=== PATIENT | male | born 1985 | race Caucasian/White ===

== ENCOUNTER 2018-12-09 11:15 | Outpatient (REF) | payer MEDICAID, SELFPAY ==
[2018-12-13 13:53] LABS: Benzoylecgonine 18420 ng/mL (Cutoff: 50); Cocaine Negative ng/mL (Cutoff: 50); Cocaine Interpretation Positive.
== END 2018-12-09 11:35 ==
LOC: NCHCN 11:15
PROVIDERS: Visit Provider Nurse Practitioner Family
DX: I10 Essential (primary) hypertension (principal); F31.9 Bipolar disorder, unspecified; F90.9 Attention-deficit hyperactivity disorder, unspecified type; Z86.59 Personal history of other mental and behavioral disorders; Z00.00 Encounter for general adult medical examination without abnormal findings
CPT/HCPCS: 80353

== ENCOUNTER 2019-03-02 03:58 | Emergency (ER) | payer MEDICAID, SELFPAY ==
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
== END 2019-03-02 06:20 ==
DX: S71.112A Laceration without foreign body, left thigh, initial encounter (principal); W26.0XXA Contact with knife, initial encounter; F14.90 Cocaine use, unspecified, uncomplicated; R45.1 Restlessness and agitation
CPT/HCPCS: 73552; 90471; 96372; 96374; 96375; 99284

== ENCOUNTER 2022-07-15 15:28 | Outpatient (REF) | payer MEDICAID, SELFPAY ==
[2022-07-15 19:38] LABS: HCT 45.2 % (40.0-50.0); HGB 15.3 g/dL (13.5-17.5); MCH 29.4 pg (27.0-33.0); MCHC 33.8 % (32.0-36.0); MCV 87 fL (80-95); MPV 10.3 fL (8.0-11.0); Platelet Count 181 10^3/uL (130-400); RDW 12.3 % (11.8-14.1); RDW-SD 39.4 fL; WBC 8.29 10^3/uL (4.4-10.8)
[2022-07-15 19:53] LABS: ALT 28 U/L (16-63); AST 38 U/L (15-37); Albumin 4.6 g/dL (3.4-5.0); Alkaline Phosphatase 85 U/L (46-116); Anion Gap 10.6 mmol/L (3-11); BUN 19 mg/dL (7-18); Bilirubin, Total 0.7 mg/dL (0.2-1.0); CO2 27.4 mmol/L (21.0-32.0); CREATININE 1.2 mg/dL (0.70-1.30); Calcium 9.6 mg/dL (8.5-10.1); Calculated LDL 98 mg/dL (<100); Chloride 100 mmol/L (98-107); Cholesterol 174 mg/dL (<200); Estimated GFR 79.88 (mL/min/1.73m2); Glucose 130 mg/dL (74-106); HDL Cholesterol 53 mg/dL (40-60); Potassium 3.7 mmol/L (3.5-5.1); Sodium 138 mmol/L (136-145); Total Protein 7.5 g/dL (6.4-8.2); Triglyceride 115 mg/dL (<150)
[2022-07-15 19:57] LABS: Hemoglobin A1C 5.2 % (<5.7)
[2022-07-17 08:40] LABS: Hepatitis B Surface Ag Negative (Negative)
[2022-07-17 09:26] LABS: HIV-1/2 Ag & Ab Screen Negative (Negative)
[2022-07-17 11:30] LABS: HCV RNA Qualitative Undetected (Undetected)
== END 2022-07-15 15:29 | disposition home or self-care (01) ==
LOC: NCHCN 15:28
PROVIDERS: Visit Provider Family Medicine
DX: Z11.59 Encounter for screening for other viral diseases (principal); Z11.4 Encounter for screening for human immunodeficiency virus [HIV]; Z87.19 Personal history of other diseases of the digestive system; Z13.1 Encounter for screening for diabetes mellitus; Z13.220 Encounter for screening for lipoid disorders
CPT/HCPCS: 80053; 80061; 85027; 87340; 87389; 87522; 83036

== ENCOUNTER 2023-01-03 08:08 | Emergency (ER) | payer MEDICAID, SELFPAY ==
[2023-01-03] VITALS (32 sets, daily range): BP systolic 108–152; BP diastolic 76–99; PULSE 81–110; RESP 12–100; O2SAT 98–100
--- NOTE | 2023-01-03 | DI.CT_ITS ---
Exam(s) CT THORACIC LUMBAR SPINE REC EXAM: CT THORACIC LUMBAR SPINE REC CLINICAL HISTORY: Per [facility] [place] Dr. Devonte Robledo. TECHNIQUE: Imaging Protocol: Axial, coronal and sagittal images were reconstructed from the chest ab domen and pelvic CT utilizing bone algorithm.. COMPARISON: CT CT CHEST/ABD/PEL W from 01/03/2023 FINDINGS: Thoracic spine: Bones: No fractures are seen. Mild scoliosis. Alignment otherwise unremarkable. Mild degenerative disc changes. Soft tissues: The soft tissues of the chest are unremarkable. No large disk herniations are identifie d. Endotracheal tube. Lumbar spine: No fracture is identified. Minimal degenerative disc changes and facet degenerative ch anges are present. Soft tissues: There is no large disc herniation. No paraspinal hematoma. IMPRESSION: No acute abnormality of the thoracic or lumbar spine. RADIATION DOSE DELIVERED: Total DLP DATA REPOSITORY: All CT scans at this facility are submitted to the National Radiology Data Registry (NRDR) Dose Index Registry (DIR) with the [employer] (ACR). RADIATION OPTIMIZATION: All CT scans at this facility use at least one of these dose optimization te chniques: automated exposure control; mA and/or kV adjustment per patient size (includes targeted exa ms where dose is matched to clinical indication); or iterative reconstruction.
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
--- NOTE | 2023-01-03 08:30 | DI.RAD_ITS ---
Exam(s) XR PORTABLE CHEST AP EXAM: XR PORTABLE CHEST AP CLINICAL HISTORY: intubated. TECHNIQUE: 2D digital imaging was performed. COMPARISON: CR PORTABLE CHEST ONE VIEW from 07/24/2015 FINDINGS: Single AP portable view. Distal tip of the endotracheal tube is in the trachea at the clavicular level. Heart size is upper normal. The mediastinum is not widened. Lungs are clear. No infiltrates nor obvious pleural effusions. No obvious pneumothorax evident on this portable supine view. No obvious fractures. IMPRESSION: ET tube placement as above. No acute pulmonary findings evident on this single portable AP supine vi ew. DATA REPOSITORY: RADIATION DOSE DELIVERED:
[2023-01-03] MEDS: Etomidate 20 MG/10 ML VIAL 30 MG IVP (08:31)
[2023-01-03] MEDS: Rocuronium 50 MG/5 ML SYR 100 MG IVP (08:31)
[2023-01-03] MEDS: fentaNYL 100 MCG/2 ML VIAL ×2 (08:39→09:02)
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
[2023-01-03] MEDS: PROPOFOL 500 MG/50 ML BTL IV (08:46)
[2023-01-03] MEDS: fentaNYL 100 MCG/2 ML VIAL 50 MCG IVP ×2 (08:52→10:52)
--- NOTE | 2023-01-03 09:02 | W.EDPROG ---
Discharge Plan Discharge Details ED Provider: Provider,Temporary Home Meds and New Rx's Prescriptions: No Action methylphenidate HCl [Ritalin] 20 MG tablet 20 mg PO TID
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
[2023-01-03] MEDS: fentaNYL 1,000 MCG in Normal Saline 80 ML 0.1 MCG IV (09:05)
[2023-01-03] MEDS: Normal Saline Flush 10 ML SYR IVP (09:11)
[2023-01-03] MEDS: Normal Saline - Diluent 50 ML VIAL IJ (09:12)
[2023-01-03] MEDS: Omnipaque 350 MG/ML 100 ML BTL IJ (09:12)
[2023-01-03] MEDS: MIDAZOLAM 50 MG in Normal Saline 90 ML IV (09:18)
--- NOTE | 2023-01-03 09:19 | DI.VRAD_ITS ---
PROCEDURE INFORMATION: Exam: XR Chest Exam date and time: 01/03/2023 9:01 AM Age: 37 years old Clinical indication: Other: Intubated, line placement; Patient HX: Trauma TECHNIQUE: Imaging protocol: Radiologic exam of the chest. Views: 1 view. COMPARISON: No relevant prior studies available. FINDINGS: Tubes, catheters and devices: An endotracheal tube projects over the central air column with the tip approximately at the level of the heads of the clavicles. Lungs: The lungs are grossly clear. Pleural spaces: No evidence of pneumothorax. Heart/Mediastinum: Unremarkable. No cardiomegaly. Bones/joints: No definite acute bony abnormalities. IMPRESSION: 1. Endotracheal tube as described. 2. No definite evidence of an acute cardiopulmonary process or thoracic injury. Dictated and Authenticated by: Sudarshan Ramirez MD. Ordering:MIGUEL De Los Santos MD
--- NOTE | 2023-01-03 10:30 | DI.RAD_ITS ---
Exam(s) XR PORTABLE CHEST AP POST LINE EXAM: XR PORTABLE CHEST AP POST LINE CLINICAL HISTORY: og tube. TECHNIQUE: 2D digital imaging was performed. COMPARISON: CR,XR XR PORTABLE CHEST AP from early same date 01/03/2023 FINDINGS: Single AP portable view. Endotracheal tube remains in the trachea at clavicular level. There has been placement of an NG tube . Distal tip appears to be at the level the gastric fundus. Chest leads in place. Heart size is upper normal. The mediastinum is not widened. Lungs are clear. No infiltrates nor obvious pleural effusions. No obvious fractures evident. IMPRESSION: ET tube placement as above. No new pulmonary findings. NG tube appears to be in the stomach. DATA REPOSITORY: RADIATION DOSE DELIVERED:
--- NOTE | 2023-01-03 10:33 | NUR.NOTE ---
Nursing Note:This RN took report at 1010. Pt is intubated and on vent. Fentanyl and Midazolam infusing in left arm. OG 14F established and Zapata 16F established without incident. MD informed of pt's continued biting of tube and need for further sedation methods.
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
[2023-01-03 10:35] LABS: BE (Venous) 4 mmol/L (-2-3); HCO3 (Venous) 30 mmol/L (23-28); O2 Sat (Venous) 75 %; TCO2 (Venous) 27 mmol/L (24-29); pCO2 (Venous) 58 mmHg (41-51); pH (Venous) 7.32 (7.31-7.41); pO2 (Venous) 42 mmHg
[2023-01-03 10:37] LABS: Abs Immature Grans 0.17 10^3/uL (0.0-0.06); Absolute Monocyte Count 1.32 10^3/uL (0.1-0.8); Basophils % 0.2; HCT 39.6 % (40.0-50.0); HGB 13.7 g/dL (13.5-17.5); Immature Grans % 0.7; Lymphocytes % 3.4; MCH 29.8 pg (27.0-33.0); MCHC 34.6 % (32.0-36.0); MCV 86 fL (80-95); MPV 9.1 fL (8.0-11.0); Monocytes % 5.4; Neutrophils % 90.3; Platelet Count 251 10^3/uL (130-400); RDW 12.7 % (11.8-14.1); RDW-SD 39.5 fL; WBC 24.45 10^3/uL (4.4-10.8)
--- NOTE | 2023-01-03 10:37 | DI.VRAD_ITS ---
PROCEDURE INFORMATION: Exam: CT Chest With Contrast; Diagnostic Exam date and time: 01/03/2023 9:43 AM Age: 37 years old Clinical indication: Other: Trauma, jaw FX, altered left chest wall tender TECHNIQUE: Imaging protocol: Diagnostic computed tomography of the chest with contrast. Radiation optimization: All CT scans at this facility use at least one of these dose optimization techniques: automated exposure control; mA and/or kV adjustment per patient size (includes targeted exams where dose is matched to clinical indication); or iterative reconstruction. Contrast material: OMNIPAQUE 350; Contrast volume: 100 ml; Contrast route: INTRAVENOUS (IV); COMPARISON: CR XR PORTABLE CHEST AP 01/03/2023 9:01 AM FINDINGS: Tubes, catheters and devices: Endotracheal tube terminates 3 cm above the brittani. Lungs: No consolidation. No masses. Pleural spaces: Unremarkable. No pneumothorax. No pleural effusion. Heart: No cardiomegaly. No pericardial effusion. Mediastinal space: Frothy material within the esophagus. No mediastinal hematoma. Scattered foci of gas noted throughout and imaged neck and at the superior mediastinum. Lymph nodes: No enlarged lymph nodes. Vasculature: No aortic aneurysm. Bones/joints: Unremarkable. No acute fracture. Soft tissues: Unremarkable. IMPRESSION: 1. No acute intrathoracic finding. 2. Scattered foci of gas at the throughout the imaged portion of the neck, likely dissected from the more superior soft tissue injury. PROCEDURE INFORMATION: Exam: CT Abdomen And Pelvis With Contrast Exam date and time: 01/03/2023 9:43 AM Age: 37 years old Clinical indication: Other: Trauma, jaw FX, altered left chest wall tender TECHNIQUE: Imaging protocol: Computed tomography of the abdomen and pelvis with contrast. Radiation optimization: All CT scans at this facility use at least one of these dose optimization techniques: automated exposure control; mA and/or kV adjustment per patient size (includes targeted exams where dose is matched to clinical indication); or iterative reconstruction. Contrast material: OMNIPAQUE 350; Contrast volume: 100 ml; Contrast route: INTRAVENOUS (IV); COMPARISON: CR XR PORTABLE CHEST AP 01/03/2023 9:01 AM FINDINGS: Limitations: Beam hardening/streak artifact from arms down positioning. Liver: Normal. No mass. Gallbladder and bile ducts: Normal. No calcified stones. No ductal dilation. Pancreas: Normal. No ductal dilation. Spleen: Normal. No splenomegaly. Adrenal glands: Normal. No mass. Kidneys and ureters: Normal. No hydronephrosis. Stomach and bowel: No obstruction. No mucosal thickening. Appendix: No evidence of appendicitis. Intraperitoneal space: No free air. No significant fluid collection. Vasculature: No abdominal aortic aneurysm. Lymph nodes: No enlarged lymph nodes. Urinary bladder: Unremarkable as visualized. Reproductive: Unremarkable as visualized. Bones/joints: No acute fracture. Soft tissues: Unremarkable. IMPRESSION: No acute findings. Dictated and Authenticated by: Malena Loredo MD. Ordering:MIGUEL De Los Santos MD
[2023-01-03 10:42] LABS: Absolute Basophil Count 0.05 10^3/uL (0.0-0.2); Absolute Lymphocyte Count 0.83 10^3/uL (1.2-3.4); Absolute Neutrophil Count 22.08 10^3/uL (1.2-6.7)
[2023-01-03 10:47] LABS: Bilirubin Small (Negative); Blood Moderate (Negative); Clarity Clear (Clear); Glucose Negative (Negative); Ketones Negative (Negative); Leukocyte Esterase Negative (Negative); Nitrite Negative (Negative); Specific Gravity >= 1.030 (1.005-1.025); Urobilinogen 0.2 mg/dL (Up to 0.2); pH 5.5 (5-8)
[2023-01-03 10:50] LABS: PTT Activated 23.7 sec (21.5-31.9); Prothrombin Time 10.3 sec (9.3-11.0)
[2023-01-03 10:54] LABS: Bacteria Negative HPF (Negative); C & S Indicated? No; Casts 3-5 Coarse Granular LPF (Negative); Crystals Few Amorphous HPF (Negative); Epithelial Cells Negative HPF (Negative); Mucus Moderate (Negative); Other Cells Few Transitional (Negative); RBC 20-50 HPF (0-2)
[2023-01-03] MEDS: cefTRIAXone 2 GM/50 ML BAG IVPB (10:55)
[2023-01-03 11:02] LABS: *AMPHETAMINES SCREEN URINE Positive (Negative); *BARBITURATES SCREEN URINE Negative (Negative); *BENZODIAZEPINES SCREEN URINE Negative (Negative); Cannabinoids THC Negative (Negative); Cocaine Screen,Urine Positive (Negative); METHADONE URINE SCREEN Negative (Negative); OPIATES URINE SCREEN Negative (Negative)
[2023-01-03 11:02] LABS: ALT 285 U/L (16-63); AST 291 U/L (15-37); Albumin 3.7 g/dL (3.4-5.0); Alkaline Phosphatase 103 U/L (46-116); Amylase 88 U/L (25-115); Bilirubin, Direct 0.3 mg/dL (0.0-0.2); Bilirubin, Total 1.9 mg/dL (0.2-1.0); Lipase 48 U/L (16-77); Total Protein 7.7 g/dL (6.4-8.2)
[2023-01-03 11:03] LABS: ALT 285 U/L (16-63); AST 289 U/L (15-37); Albumin 3.8 g/dL (3.4-5.0); Alkaline Phosphatase 99 U/L (46-116); Anion Gap 7.4 mmol/L (3-11); BUN 23 mg/dL (7-18); Bilirubin, Total 1.9 mg/dL (0.2-1.0); CO2 29.6 mmol/L (21.0-32.0); CREATININE 1.4 mg/dL (0.70-1.30); Calcium 9.5 mg/dL (8.5-10.1); Chloride 100 mmol/L (98-107); Estimated GFR 66.39 (mL/min/1.73m2); Glucose 146 mg/dL (74-106); Magnesium 2.2 mg/dL (1.8-2.4); Potassium 4.6 mmol/L (3.5-5.1); Sodium 137 mmol/L (136-145); Total Protein 7.7 g/dL (6.4-8.2); Troponin I < 50 ng/L (<or=60)
[2023-01-03 11:03] LABS: Tricyclic Antidepressants Negative (Negative)
[2023-01-03 11:04] LABS: ETHANOL BLOOD < 3.0 mg/dL (<10)
[2023-01-03 11:09] LABS: Diff Comment Diff Reviewed; RBC Morphology Normal
--- NOTE | 2023-01-03 11:27 | DI.VRAD_ITS ---
PROCEDURE INFORMATION: Exam: XR Chest Exam date and time: 01/03/2023 11:05 AM Age: 37 years old Clinical indication: Other: Post og tube placement TECHNIQUE: Imaging protocol: Radiologic exam of the chest. Views: 1 view. COMPARISON: CT CHEST/ABD/PEL W 01/03/2023 9:43 AM FINDINGS: Tubes, catheters and devices: Orogastric tube tip in the stomach. ET tube at the level of the clavicles. Lungs: Unremarkable. No consolidation. Pleural spaces: Unremarkable. No pleural effusion. No pneumothorax. Heart/Mediastinum: Unremarkable. No cardiomegaly. Bones/joints: Unremarkable. IMPRESSION: 1. Orogastric tube tip in the stomach. 2. Stable position of ET tube. Dictated and Authenticated by: Claudia Kelly MD. Ordering:MIGUEL De Los Santos MD
[2023-01-03] MEDS: Ketamine 50 MG/5 ML SYRINGE 30 MG IVP (11:50)
--- NOTE | 2023-01-03 11:57 | NUR.NOTE ---
Nursing Note: MD to change ketamine order of 30mg given at 1150. New fentanyl and medazolam bags given at departure.
--- NOTE | 2023-01-03 12:25 | NUR.NOTE ---
Nursing Note: Report called to [facility] ED to Melita Nunez. Transport team departed at [address] [facility].
== END 2023-01-03 12:07 | disposition short-term general hospital (02) ==
PROVIDERS: Emergency Provider Student in an Organized Health Care Education/Training Program
DX: J96.90 Respiratory failure, unspecified, unspecified whether with hypoxia or hypercapnia (principal); R41.82 Altered mental status, unspecified; S02.609B Fracture of mandible, unspecified, initial encounter for open fracture; W17.89XA Other fall from one level to another, initial encounter
CPT/HCPCS: 31500; 51702; 71045; 74177; 80053; 80076; 80307; 82805; 83690; 86850; 86900; 86901; 96365; 96366; 96375; 99291; 70450; 70486; 71260; 72125; 80320; 81003; 81015; 82150; 83735; 84484; 85025; 85610; 85730; J3010; J3490

== ENCOUNTER 2023-01-17 07:54 | Emergency (ER) | payer MEDICAID, SELFPAY ==
[2023-01-17] VITALS (22 sets, daily range): BP systolic 118–139; BP diastolic 73–112; PULSE 94–111; RESP 13–24; TEMP 36.4–37.1; O2SAT 94–99
--- NOTE | 2023-01-17 08:07 | W.ED.GENAD ---
Discharge Plan Disposition Patient Disposition: Home Discharge Details Clinical Impression: Hypercalcemia, Thrombocytosis, Acute thrombosis of left internal jugular vein, Sinus tachycardia, Acute lactic acidosis Primary Care Provider: None,None ED Provider: Kristopher Daley Home Meds and New Rx's Prescriptions: New bupropion HCl 150 mg tablet extended release 24 hr 150 mg PO QAM Qty: 30 0RF buprenorphine-naloxone [Suboxone] 8-2 mg film 1 film buccal DAILY Qty: 15 0RF up4 Probiotics Adult 15 billion cell capsule 5 cap PO DAILY Qty: 10 0RF No Action methylphenidate HCl [Ritalin] 20 MG tablet 20 mg PO TID Discharge Instructions Additional Instructions: Please read all of the information that accompanies these instructions. You were seen in the emergency department for your generalized weakness. You are advised to remain in the hospital but you declined and left AGAINST MEDICAL ADVICE. Please go to the ENT team as previously scheduled tomorrow. Please return to the emergency department if worsening pain in her neck difficulty breathing or any fevers. Please continue taking your outpatient antibiotics as previously scheduled. Discharge Data Discharge Date/Time-TO BE ENTERED AT DEPARTURE: 01/17/23 14:00 Medical Decision Making This is a well-appearing 37-year-old tachycardic but afebrile male 3 days status post discharge from [facility] with 2 cannulated tracheostomy and G-tube now feeling generally unwell with signs of dehydration. Based on his tachycardia and recent surgical intervention we will plan on obtaining lactate 2 sets of blood cultures and treating empirically with ceftriaxone and vancomycin. Patient reports that he has been adherent with his antibiotics and his antifungal medications. He reports that he has been tolerating his tube feeds. His G-tube site and his stoma site do not appear to be infected. The incisions on his neck do not appear to be infected so my suspicion is low for retained foreign bodies. Furthermore he denies any difficulty swallowing or breathing. Will complete CT soft tissue neck to ensure patient does not have any significant fluid collections postoperatively given that he has had difficulty swallowing. No pain out of proportion to suggest necrotizing soft tissue infection. No dysuria nor frequency to suggest urinary tract infection. Given no shortness of breath and no chest pain my suspicion for PE is low. Patient has not been receiving his bupropion or Suboxone and so it is certainly also a possibility that he could be having early withdrawal from his Suboxone which he had been receiving while an inpatient at [facility]. Patient's rhythm appears sinus on the monitor with a rate of 106. Given no chest pain will defer ECG at this point in time. Patient does have outpatient ENT follow-up tomorrow at 3:45 PM. Will obtain CK level to ensure patient does not develop rhabdomyolysis given decreased activity. We will also obtain magnesium level to ensure patient is not markedly hypomagnesemic. We will redose bupropion and Suboxone. 8:42 PM Lactate returned at 2.5. CBC significant for leukocytosis and thrombocytosis but no anemia. Compared to prior leukocytosis has improved but thrombocytosis is new. 9:29 AM Very mild hyponatremia. No anion gap. Mildly elevated BUN. No GALINA. Mildly elevated alkaline phosphatase. Mild hypercalcemia. Tachycardia downtrending currently 103 bpm. Will provide a second liter of IV fluids. Normal magnesium. Normal CK. 11 AM Preliminary V rad interpretation: 1. Thrombus in the left internal jugular vein in the superior left neck. No evidence of intracranial extension. 2. Rim-enhancing superficial fluid collections in the lateral right and left neck, suspicious for abscesses; see details above. 3. A 4.6 cm x 1.1 cm x 2.9 cm rim-enhancing fluid collection in the retropharyngeal space at C1-C2 is also suspicious for abscess. This contributes to moderate narrowing of the nasopharyngeal and upper oropharyngeal airway. 4. Suspected retained gas-containing foreign body in the right event organizer space which measures 2.4 cm in length Given reported thrombus in left IJ will initiate heparin drip. We will touch base with ENT at [facility] concerning transfer. We will also touch base with ENT about whether or not to initiate ampicillin-sulbactam. 11:50 AM I spoke with Dr. Walker from ENT at [facility] who reported that the patient's left IJ thrombus was old. She wants to review with her attending the other collections as she feels that these are similar to areas in which patient had drains in the past. 12:30 PM Repeat lactate within normal limits. I canceled patient's heparinization given reportedly old left IJ thrombus. 1:07 PM Repeat basic metabolic panel with mildly improved creatinine. Down trended BUN. Resolved hypercalcemia. 1:50 PM Patient requested his methylphenidate for anxiety which I ordered. Health community health nurse supervisor Paul ledbetter to inquire as to timing of ENT reconsultation. 1:57 PM I spoke again to Dr. Walker who reviewed scans w/rads at [facility]. She felt changes were consistent with expected changes. She advised local hospitalization versus [facility] transfer. She advised flucoinzole by PEG tube, cefepime & vanco. 2:15 PM I met with the patient and explained recommendation from ENT for the patient to be hospitalized. Patient was adamant about wanting to go home. Patient wrote that he felt 100% better. He felt that he was not feeling well secondary to his buprenorphine missed doses. I advised that there is risks of being discharged including worsening infection fevers sepsis and . He understood these risks and will follow-up tomorrow with his ENT team. He will continue his outpatient sulfamethoxazole and his fluconazole. Patient also requested a prescription for probiotics which I ordered. 1. I explained the current situation and condition to the patient. 2. I explained the recommended treatment for this condition -hospitalization for antibiotics 3. I explained the risk of not having the recommended treatment -sepsis infection and 4. The patient understands this information has no questions, and repeated back this information. 5. The patient states that they need to leave and will follow-up with ENT tomorrow and return if needed 6. Mental status is lucid and the patient has decision-making capacity. 7. Patient is withdrawing his consent for care Chronic conditions affecting the care of the patient: Decannulate tracheostomy stoma History obtained from an outside historian: ENT at [facility] External record review: [facility] EMR Diagnostic interpretations performed by me: [Per my independent interpretation chest x-ray shows:] No acute cardiopulmonary process preliminary ED interpretation Medications: Ceftriaxone and vancomycin Social determinants of health affecting disposition: N/A Management discussed with: ENT at [facility] Treatment/interventions considered: Hospitalization but deferred as patient left AGAINST MEDICAL ADVICE Response to therapies provided: Improved following IV fluids and buprenorphine HPI General Date/Time Provider Initiated Documentation: 01/17/23 08:07. HPI Narrative: This is a 37-year-old male on outpatient bupropion and Suboxone who is approximately 15 days status post significant trauma to head and neck requiring intubation tertiary care transfer tracheostomy placement and extensive ENT surgery at [facility] and PEG tube placement now feeling weak. Patient has been tolerating his tube feeds. He was discharged from [facility] 3 days ago. He denies chest pain shortness of breath. He reports that he has not been taking as he was not prescribed these his bupropion and his Suboxone after discharge from [facility]. He has not been nauseous or vomiting nor had any fevers nor chills. He has had difficulty swallowing. He denies dysuria and frequency. He has not had any calf pain nor abdominal pain. He has not had any drainage from his neck wounds. Related Data Home Medications Medication Instructions Recorded Confirmed methylphenidate HCl 20 mg tablet 20 mg PO TID 07/26/15 07/26/15 (Ritalin) Lactobacillus 5 cap PO DAILY #10 caps 01/17/23 acidophil,plantar-Bifido no.7 15 billion cell capsule (up4 Probiotics Adult) buprenorphine 8 mg-naloxone 2 mg 1 film buccal DAILY #15 ea 01/17/23 sublingual film (Suboxone) bupropion HCl 150 mg 24 hr tablet, 150 mg PO QAM #30 tabs 01/17/23 extended release Previous Rx's Medication Instructions Recorded Lactobacillus 5 cap PO DAILY #10 caps 01/17/23 acidophil,plantar-Bifido no.7 15 billion cell capsule (up4 Probiotics Adult) buprenorphine 8 mg-naloxone 2 mg 1 film buccal DAILY #15 ea 01/17/23 sublingual film (Suboxone) bupropion HCl 150 mg 24 hr tablet, 150 mg PO QAM #30 tabs 01/17/23 extended release Allergies Allergy/AdvReac Type Severity Reaction Status Date / Time tomato Allergy Unknown Unverified 01/17/23 08:05 General Stated Complaint: [employer]Medical APRIL: 2 PFSH All Active Problems (Updated 01/17/23 @ 12:32 by Kristopher Daley MD) Drug overdose, multiple drugs (Acute) Respiratory failure (Acute) Suicidal ideation (Acute) Trauma (Acute) Acute alteration in mental status (Acute) Hypercalcemia (Acute) Thrombocytosis (Acute) Acute thrombosis of left internal jugular vein (Acute) Sinus tachycardia (Acute) Acute lactic acidosis (Acute) Social History Smoking/Tobacco Use Status: Current every day Tobacco Type: cigarettes Smoking risk assessment performed?: Yes Alcohol Intake: current Alcohol Intake frequency: holidays/special occasions only Drug use: Never Substance use type: marijuana and crack/cocaine Details: has not used anything since his trauma 2 weeks ago 01/17/23 Housing: other Do you feel safe at home: Yes (unable to assess) Do you feel safe in your relationship?: Yes Additional Social history: lives in [place] with girlfriend Exam Narrative Exam Narrative: General: Uncomfortable-appearing in no acute distress speaking in complete sentences. Head: Normocephalic, atraumatic. Eye: Pupils equal, round reactive to light. Extraocular eye movements intact. No conjunctival injection. No scleral icterus. Ear, nose, mouth, throat: Grossly normal inspection. Normal voice, handling secretions normally. Neck: Trachea midline. left & right neck with surgical incisions with no signs of superinfection. Decannulate uncovered tracheostomy stoma. Cardiovascular: Well-perfused distal extremities. Rapid regular rate Respiratory: Nonlabored respiration. Clear lungs. Gastrointestinal: Nondistended abdomen. PEG-tube in place no signs of superinfection Musculoskeletal: No edema. Moving all 4 extremities spontaneously. Skin: Normal for age and race, grossly normal temperature and turgor. No acute rash. Neurologic: Alert and appropriate, no apparent acute deficits. Psychiatric: Mood and manner are appropriate. Grooming and personal hygiene are appropriate. Course Vital Signs Vital signs: Vital Signs Temperature 36.4 C L 01/17/23 08:00 Pulse 111 H 01/17/23 08:00 Respiratory Rate 20 01/17/23 08:00 Blood Pressure 132/101 H 01/17/23 08:00 Pulse Oximetry 96 01/17/23 08:00 Temperature 36.4 C L 01/17/23 08:00 Temperature Source Oral 01/17/23 08:00 Pulse 111 H 01/17/23 08:00 Respiratory Rate 20 01/17/23 08:00 Blood Pressure 132/101 H 01/17/23 08:00 Blood Pressure Position Supine 01/17/23 08:00 Pulse Oximetry 96 01/17/23 08:00 Oxygen Delivery Method Room Air 01/17/23 08:00 Oxygen Flow Rate 0 01/17/23 08:00 Pain Level 0 01/17/23 08:00 Critical Care Time Critical Care Time Critical Care Time: Yes Total Critical Care Time: 30 Attestation: Tachycardia lactic acidosis
--- NOTE | 2023-01-17 08:15 | DI.RAD_ITS ---
Exam(s) XR PORTABLE CHEST AP EXAM: XR PORTABLE CHEST AP CLINICAL HISTORY: Feeling unwell. TECHNIQUE: 2D digital imaging was performed. COMPARISON: CR,XR XR PORTABLE CHEST AP POST LINE from 01/03/2023 FINDINGS: Single AP portable view. Heart size is upper normal. The mediastinum is not widened. Lungs are clear. No infiltrates nor obvious pleural effusions. IMPRESSION: No acute pulmonary findings on this single AP portable view of the chest. DATA REPOSITORY: RADIATION DOSE DELIVERED:
--- NOTE | 2023-01-17 08:30 | DI.CT_ITS ---
Exam(s) CT NECK W EXAM: CT NECK W INDICATION: Feeling unwell? foreign body wood Postop. COMPARISON: CT CT HEAD CERV SPINE FACIAL WO from 01/03/2023 TECHNIQUE: FINDINGS: VISUALIZED PARANASAL SINUSES: Unremarkable. NASOPHARYNX: Unremarkable RETROPHARYNGEAL/PREVERTEBRAL SPACE: There is an abnormal peripherally enhancing retropharyngeal fluid collection at C1-2 level along the course of the previously present traversing puncture wound seen o n the recent CT scan of 01/03/2023. There is also an associated perpendicular abscess extending more anteriorly in the retropharyngeal tissues. Maximum AP dimension of the abscess is 1.4 cm at this [place]. Abscess is approximately 6 cm wide and approximately 3 cm cephalocaudal measurement. This absc ess causes moderate narrowing of the upper pennie pharyngeal and nasopharyngeal cavities. OTHER COLLECTIONS: There is a peripherally enhancing fluid collection left side of the neck surroundi ng a surgical clip. This collection measures approximately 3 cm AP by 1 cm wide by 7 cm cephalocauda l. There is also a thinner similar appearing abnormal fluid collection in the right side of the neck whi ch extends up towards the parotid gland, measuring approximately 11 cm cephalocaudal length by 0.6 cm wide. Air-gas as in the right manufactured buildings repairer space measuring 2.5 cm length by 0.5 cm. This may be gas within retained nonmetallic foreign body. OROPHARYNX: Uvula and tonsils appear intact. HYPOPHARYNX: Unremarkable. Valleculae and epiglottis and aryepiglottic folds appear normal. VOCAL CORDS: Unremarkable. No masses evident. Subglottic airway appears unremarkable. THYROID GLAND: Unremarkable. Normal size and no significant nodules. SALIVARY GLANDS: Unremarkable. No significant findings in the parotid and submandibular glands. LYMPH NODES: There is no adenopathy evident in the neck and supraclavicular regions. VASCULAR: The visualized common carotid arteries in the neck are patent. Carotid bulbs and proximal internal carotid arteries appear unremarkable. There is no obvious acute occlusion or dissection of the internal carotid arteries in the neck and skull base. There is intraluminal thrombus in the left internal jugular vein at the C1-C2 level without obvious extension into the intracranial compartment . VISUALIZED LUNG APICES: No significant findings. IMPRESSION: 1. There are multilevel separate rim enhancing fluid collections, all suspicious for abscesses. The abscess in the retropharyngeal space measures 3 cm cephalocaudal by 6 cm wide. It is causing mild n arrowing of the upper pennie pharyngeal and nasopharyngeal airways. 2. There also a rim enhancing more superficial abscesses in the lateral aspects of the right and lef t sides the neck as described above. 3. There is intraluminal thrombus in the left internal jugular vein without evidence of obvious intr acranial extension. 4. The visualized carotid arteries in the neck appear intact. 5. Oblique orientated gas as in the right manufactured buildings repairer space measuring 2.5 by 0.5 cm may represent ga s as within a nonmetallic foreign body in the right manufactured buildings repairer space. First read by [facility]. RADIATION DOSE DELIVERED: 553.77mGy.cm Total DLP DATA REPOSITORY: All CT scans at this facility are submitted to the National Radiology Data Registry (NRDR) Dose Index Registry (DIR) with the [employer] ([employer]). RADIATION OPTIMIZATION: All CT scans at this facility use at least one of these dose optimization te chniques: automated exposure control; mA and/or kV adjustment per patient size (includes targeted exa ms where dose is matched to clinical indication); or iterative reconstruction.
[2023-01-17] MEDS: Normal Saline 1,000 ML 1000 ML IV ×2 (08:36→10:50)
[2023-01-17 08:42] LABS: Abs Immature Grans 0.35 10^3/uL (0.0-0.06); Absolute Basophil Count 0.09 10^3/uL (0.0-0.2); Absolute Eosinophil Count 0.09 10^3/uL (0.0-0.7); Absolute Lymphocyte Count 1.83 10^3/uL (1.2-3.4); Absolute Monocyte Count 0.87 10^3/uL (0.1-0.8); Absolute Neutrophil Count 14.22 10^3/uL (1.2-6.7); Basophils % 0.5; Eosinophils % 0.5; HCT 41.8 % (40.0-50.0); HGB 14.2 g/dL (13.5-17.5); Lactate 2.5 mmol/L (0.6-1.4); Lymphocytes % 10.5; MCH 29.2 pg (27.0-33.0); MCV 86 fL (80-95); MPV 8.9 fL (8.0-11.0); Neutrophils % 81.5; Platelet Count 544 10^3/uL (130-400); RBC 4.87 10^6/uL (4.36-5.78); RDW 13.6 % (11.8-14.1); RDW-SD 41.3 fL; WBC 17.45 10^3/uL (4.4-10.8)
[2023-01-17] MEDS: cefTRIAXone 2 GM/50 ML BAG IVPB (08:44)
[2023-01-17 08:57] LABS: ALT 54 U/L (16-63); AST 35 U/L (15-37); Albumin 3.7 g/dL (3.4-5.0); Alkaline Phosphatase 163 U/L (46-116); Anion Gap 10.6 mmol/L (3-11); BUN 30 mg/dL (7-18); Bilirubin, Total 0.6 mg/dL (0.2-1.0); CO2 29.4 mmol/L (21.0-32.0); CREATININE 1.2 mg/dL (0.70-1.30); Calcium 10.5 mg/dL (8.5-10.1); Chloride 91 mmol/L (98-107); Creatine Kinase 87 U/L (39-308); Estimated GFR 79.88 (mL/min/1.73m2); Glucose 148 mg/dL (74-106); Magnesium 2.3 mg/dL (1.8-2.4); Potassium 4.6 mmol/L (3.5-5.1); Sodium 131 mmol/L (136-145); Total Protein 10.1 g/dL (6.4-8.2)
[2023-01-17] MEDS: Normal Saline - Diluent 50 ML VIAL IJ (09:44)
[2023-01-17] MEDS: Normal Saline Flush 10 ML SYR IVP (09:44)
[2023-01-17] MEDS: Omnipaque 350 MG/ML 100 ML BTL IJ (09:45)
--- NOTE | 2023-01-17 09:55 | DI.VRAD_ITS ---
PROCEDURE INFORMATION: Exam: XR Chest Exam date and time: 01/17/2023 9:47 AM Age: 37 years old Clinical indication: Other: Feeling unwell TECHNIQUE: Imaging protocol: Radiologic exam of the chest. Views: 1 view. COMPARISON: CR XR PORTABLE CHEST AP 01/03/2023 11:05 AM FINDINGS: Lungs: The lungs are clear and well aerated bilaterally. There is no consolidation, infiltrate, or pulmonary edema. The pulmonary vasculature is normal in caliber. Pleural spaces: Unremarkable. No pleural effusion or pneumothorax. Heart/Mediastinum: Heart size and cardiomediastinal contours are normal. Bones/joints: No acute osseous abnormality. IMPRESSION: No active disease in the chest. Dictated and Authenticated by: Mae Collins MD. Ordering:ALMAS Summers MD
--- NOTE | 2023-01-17 10:50 | DI.VRAD_ITS ---
Addendum created by Mae Collins MD on 01/17/2023 11:05:17 AM EDT: In the body of the report under the subheading Salivary glands, the statement should read: There is asymmetric enlargement of the right parotid gland which contains a 2.4 cm x 1.2 cm x 1.9 cm fluid collection with thin rim enhancement (measured on sagittal image 71 and series 3, image 70), suspicious for abscess. THIS REPORT CONTAINS FINDINGS THAT MAY BE CRITICAL TO PATIENT CARE. The findings were verbally communicated via telephone conference at 11:05 AM EDT on 01/17/2023 with NGHIA MCNULTY. The findings were acknowledged and understood. Initial report created on 01/17/2023 10:50:05 AM EDT: PROCEDURE INFORMATION: Exam: CT Neck With Contrast Exam date and time: 01/17/2023 9:53 AM Age: 37 years old Clinical indication: Other: Feeling unwell? Foreign body wood postop; Prior surgery; Surgery date: <1 month; Surgery type: Jaw surgery TECHNIQUE: Imaging protocol: Computed tomography of the neck with contrast. Radiation optimization: All CT scans at this facility use at least one of these dose optimization techniques: automated exposure control; mA and/or kV adjustment per patient size (includes targeted exams where dose is matched to clinical indication); or iterative reconstruction. Contrast material: OMNIPAQUE 350; Contrast volume: 100 ml; Contrast route: INTRAVENOUS (IV); COMPARISON: CT HEAD CERV SPINE FACIAL WO 01/03/2023 9:37 AM FINDINGS: Mastoid air cells: Well-aerated. Pharynx: The retropharyngeal fluid collection described below contributes to moderate effacement of the nasopharyngeal and upper oropharyngeal airway. The hypopharynx is patent and normal in caliber. The epiglottis is unremarkable. Larynx: Unremarkable. Prevertebral and retropharyngeal spaces: There is an irregular elongated retropharyngeal fluid collection at the C1-C2 level with thin rim enhancement which contains some globular and linear foci of gas, most suggestive of abscess. This measures approximately 4.1 cm craniocaudal and up to 1.2 cm x 4.8 cm in maximum AP and transverse dimensions, respectively (measured on sagittal image 45 and series 4, image 355). Salivary glands: The parotid and submandibular glands are normal and symmetric in size. Thyroid: Unremarkable. Lymph nodes: No pathologically enlarged lymph nodes. Trachea: The visualized trachea is patent and normal in caliber. There are presumed postsurgical changes from presumed recent tracheostomy in the anterior/inferior cervical trachea where there is a channel of gas extending from the trachea into the pretracheal soft tissues. Lungs: The visualized lung apices are clear. Bones/joints: No fractures or suspicious osseous lesions. Vasculature: There is a filling defect in the left internal jugular vein just inferior to the skull base which measures 2.8 cm in length (see sagittal image 33), consistent with thrombus. The right internal jugular vein and the visualized dural venous sinuses are patent. Soft tissues: Surrounding a surgical clip in the lateral left neck is a fluid collection with a thin enhancing wall which measures 4.6 cm CC x 1.1 cm TRV x 2.9 cm AP (measured on sagittal image 28 and series 4, image 260), suspicious for abscess. There is a thin elongated rim enhancing fluid collection in the lateral right neck with an adjacent surgical clip which is also suspicious for abscess. This collection measures approximately 3.4 cm CC and 0.8 cm x 2.3 cm in the axial plane (measured on sagittal image 62 and series 4, image 272). There is a small focus of gas in the soft tissues just posterior to the right angle of the mandible with multiple adjacent surgical clips. This gas is presumed to be postsurgical. There is a persistent circumscribed linear focus of gas in the right assistant gm of content & delivery space, suspicious for a retained gas-containing foreign body, with a small amount of surrounding fluid. This measures approximately 2.4 cm in length (measured on coronal image 32). IMPRESSION: 1. Thrombus in the left internal jugular vein in the superior left neck. No evidence of intracranial extension. 2. Rim-enhancing superficial fluid collections in the lateral right and left neck, suspicious for abscesses; see details above. 3. A 4.6 cm x 1.1 cm x 2.9 cm rim-enhancing fluid collection in the retropharyngeal space at C1-C2 is also suspicious for abscess. This contributes to moderate narrowing of the nasopharyngeal and upper oropharyngeal airway. 4. Suspected retained gas-containing foreign body in the right assistant gm of content & delivery space which measures 2.4 cm in length. Dictated and Authenticated by: Mae Collins MD. Ordering:ALMAS Summers MD
[2023-01-17] MEDS: VANCOMYCIN/WATER (PEG) 1.25 GM/250 ML BAG IV (10:56)
[2023-01-17] MEDS: Buprenorphine/Naloxone 8 mg/2 mg FILM 1 EACH SL (10:57)
[2023-01-17] MEDS: buPROPion 75 MG TAB PO (11:04)
[2023-01-17 12:24] LABS: Lactate 0.8 mmol/L (0.6-1.4)
[2023-01-17 12:45] LABS: Anion Gap 10.5 mmol/L (3-11); BUN 25 mg/dL (7-18); CO2 25.5 mmol/L (21.0-32.0); Calcium 9.2 mg/dL (8.5-10.1); Chloride 97 mmol/L (98-107); Estimated GFR 99.41 (mL/min/1.73m2); Glucose 158 mg/dL (74-106); Potassium 4.3 mmol/L (3.5-5.1); Sodium 133 mmol/L (136-145)
[2023-01-17] MEDS: Normal Saline 500 ML IV (12:49)
== END 2023-01-17 14:00 | disposition home or self-care (01) ==
PROVIDERS: Emergency Provider Emergency Medicine
DX: R53.1 Weakness (principal); E83.52 Hypercalcemia; D69.6 Thrombocytopenia, unspecified; I82.C12 Acute embolism and thrombosis of left internal jugular vein; R00.0 Tachycardia, unspecified; E87.20 Acidosis, unspecified; Z53.29 Procedure and treatment not carried out because of patient's decision for other reasons; Z93.0 Tracheostomy status
CPT/HCPCS: 36415; 70491; 80048; 80053; 82550; 87040; 71045; 83605; 83735; 85025; J3490

== ENCOUNTER 2023-02-26 15:57 | Emergency (ER) | payer MEDICAID, SELFPAY ==
[2023-02-26] VITALS (66 sets, daily range): BP systolic 111–149; BP diastolic 66–109; PULSE 76–99; RESP 8–28; O2SAT 62–100
--- NOTE | 2023-02-26 16:00 | DI.CT_ITS ---
Exam(s) CT HEAD WO EXAM: CT HEAD WO CLINICAL HISTORY: ams. TECHNIQUE: Imaging Protocol: Axial computed tomography images with coronal and sagittal reformatted images were created and reviewed COMPARISON: CT HEAD WITHOUT CONTRAST from 07/26/[address] HEAD CERV SPINE FACIAL WO from 01/03/[address] NECK W from 01/17/2023 CR XR CHEST 1V IN DI DEPT from 02/26/2023 FINDINGS: There is a nasal airway but its distal tip is in the right-side of the nasopharynx and requires repos itioning. There are no skull fractures. There is no fluid in the visualized paranasal sinuses. There is no evidence of intracranial hemorrhage, mass effect, or shift of midline structures. There are no extra-axial fluid collections. The ventricles are not enlarged or shifted and there is no blo od within the ventricular system nor within the basal cisterns. IMPRESSION: No acute intracranial findings on this noninfused CT scan of the brain. Nasal airway requires repositioning. Called by myself to ER physician. RADIATION DOSE DELIVERED: 831.76mGy.cm Total DLP DATA REPOSITORY: All CT scans at this facility are submitted to the National Radiology Data Registry (NRDR) Dose Index Registry (DIR) with the [employer] ([employer]). RADIATION OPTIMIZATION: All CT scans at this facility use at least one of these dose optimization te chniques: automated exposure control; mA and/or kV adjustment per patient size (includes targeted exa ms where dose is matched to clinical indication); or iterative reconstruction.
--- NOTE | 2023-02-26 16:07 | DI.RAD_ITS ---
Exam(s) XR CHEST 1V IN DI DEPT EXAM: XR CHEST 1V IN DI DEPT CLINICAL HISTORY: ams. TECHNIQUE: 2D digital imaging was performed. COMPARISON: CR,XR XR PORTABLE CHEST AP from 01/17/2023 FINDINGS: Single AP portable view. Heart size is upper normal. The mediastinum is not widened. Lungs are clear. No infiltrates nor obvious pleural effusions. IMPRESSION: No acute pulmonary findings on this single AP portable view of the chest. DATA REPOSITORY: RADIATION DOSE DELIVERED:
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
[2023-02-26 16:19] LABS: BE (Venous) 1 mmol/L (-2-3); HCO3 (Venous) 26 mmol/L (23-28); O2 Sat (Venous) 89 %; TCO2 (Venous) 23 mmol/L (24-29); pCO2 (Venous) 41 mmHg (41-51); pH (Venous) 7.41 (7.31-7.41); pO2 (Venous) 59 mmHg
[2023-02-26 16:23] LABS: Abs Immature Grans 0.04 10^3/uL (0.0-0.06); Absolute Basophil Count 0.01 10^3/uL (0.0-0.2); Absolute Lymphocyte Count 0.94 10^3/uL (1.2-3.4); Absolute Monocyte Count 0.28 10^3/uL (0.1-0.8); Absolute Neutrophil Count 6.19 10^3/uL (1.2-6.7); Basophils % 0.1; HGB 12.5 g/dL (13.5-17.5); Immature Grans % 0.5; Lymphocytes % 12.6; MCH 27.9 pg (27.0-33.0); MCHC 33.8 % (32.0-36.0); MCV 83 fL (80-95); MPV 8.9 fL (8.0-11.0); Monocytes % 3.8; Platelet Count 262 10^3/uL (130-400); RBC 4.48 10^6/uL (4.36-5.78); RDW-SD 36.5 fL; WBC 7.46 10^3/uL (4.4-10.8)
--- NOTE | 2023-02-26 16:23 | NUR.NOTE ---
Nursing Note: patient was given sedation medication by EMS prior to arrival. Patient taken off ems restraints and placed on [id number] with restraints upon arrival to ED.
[2023-02-26] MEDS: Normal Saline 1,000 ML 1000 ML IV (16:44)
[2023-02-26] MEDS: Lactated Ringers 1,000 ML 1000 ML IV ×2 (16:44→18:53)
[2023-02-26 16:46] LABS: ALT 33 U/L (16-63); AST 96 U/L (15-37); Albumin 3.8 g/dL (3.4-5.0); Alkaline Phosphatase 95 U/L (46-116); Anion Gap 10.8 mmol/L (3-11); BUN 34 mg/dL (7-18); Bilirubin, Total 0.9 mg/dL (0.2-1.0); CO2 26.2 mmol/L (21.0-32.0); CREATININE 1.1 mg/dL (0.70-1.30); Calcium 9.3 mg/dL (8.5-10.1); Chloride 97 mmol/L (98-107); Estimated GFR 88.67 (mL/min/1.73m2); Glucose 115 mg/dL (74-106); Lipase 17 U/L (16-77); Magnesium 2.3 mg/dL (1.8-2.4); Potassium 3.8 mmol/L (3.5-5.1); Sodium 134 mmol/L (136-145); TSH (W/Ref FT4) 0.84 uIU/mL (0.36-3.74)
[2023-02-26 17:02] LABS: Creatine Kinase 1695 U/L (39-308); ETHANOL BLOOD < 3.0 mg/dL (<10)
[2023-02-26 17:03] LABS: Acetaminophen < 2 ug/mL (10-30); Salicylate < 2.8 mg/dL (<2.8)
--- NOTE | 2023-02-26 17:23 | NUR.NOTE ---
Nursing Note:nursing staff and security accompanied patient to diagnostic imaging while CT and xray were performed.
[2023-02-26 17:44] LABS: INR 1.1 (0.9-1.1); PTT Activated 28.1 sec (21.5-31.9); Prothrombin Time 10.8 sec (9.3-11.0)
[2023-02-26 17:55] LABS: Bilirubin Negative (Negative); Blood Large (Negative); Clarity Sl Cloudy (Clear); Glucose Negative (Negative); Ketones Negative (Negative); Leukocyte Esterase Negative (Negative); Nitrite Negative (Negative); Specific Gravity >= 1.030 (1.005-1.025); Urobilinogen 0.2 mg/dL (Up to 0.2)
[2023-02-26 18:02] LABS: *AMPHETAMINES SCREEN URINE Negative (Negative); *BARBITURATES SCREEN URINE Negative (Negative); *BENZODIAZEPINES SCREEN URINE Positive (Negative); Cannabinoids THC Positive (Negative); Cocaine Screen,Urine Positive (Negative); METHADONE URINE SCREEN Negative (Negative); OPIATES URINE SCREEN Negative (Negative)
[2023-02-26 18:03] LABS: Tricyclic Antidepressants Negative (Negative)
--- NOTE | 2023-02-26 18:11 | NUR.NOTE ---
Nursing Note:attempted to contact patients dad, the phone was busy. [phone]
[2023-02-26 18:20] LABS: Epithelial Cells Rare HPF (Negative); RBC >50 HPF (0-2); WBC 0-2 HPF (0-5)
[2023-02-26 18:21] LABS: Bacteria Negative HPF (Negative); C & S Indicated? No; Crystals Negative HPF (Negative); Mucus Moderate (Negative)
--- NOTE | 2023-02-26 19:27 | NUR.NOTE ---
Nursing Note: RN called the father and gave him a quick update, father had questions that RN is unable to answer. MD will call the father.
[2023-02-26 22:05] LABS: Creatine Kinase 1155 U/L (39-308)
--- NOTE | 2023-02-26 22:32 | NUR.NOTE ---
Referral to Care Mgt for substance abuse resources and to establish pcp.
== END 2023-02-26 23:21 | disposition home or self-care (01) ==
PROVIDERS: Emergency Provider Emergency Medicine
DX: R41.82 Altered mental status, unspecified (principal); M62.82 Rhabdomyolysis; E86.0 Dehydration; R45.1 Restlessness and agitation
CPT/HCPCS: 36415; 51702; 80053; 80307; 82550; 82805; 82962; 83690; 96360; 96361; 99285; 70450; 71045; 80320; 80329; 81003; 81015; 83735; 84443; 85025; 85610; 85730

== ENCOUNTER 2023-05-06 16:15 | Outpatient (REF) | payer MEDICAID, SELFPAY ==
[2023-05-11 09:20] LABS: Methylphenidate Negative ng/mL (Cutoff: 10); Ritalinic Acid Negative ng/mL (Cutoff: 50)
== END 2023-05-06 16:16 | disposition home or self-care (01) ==
LOC: NCHCN 16:15
PROVIDERS: Visit Provider Family Medicine
DX: F90.9 Attention-deficit hyperactivity disorder, unspecified type (principal); Z51.81 Encounter for therapeutic drug level monitoring; Z79.899 Other long term (current) drug therapy
CPT/HCPCS: 80360

== ENCOUNTER 2023-06-04 17:43 | Outpatient (REF) | payer MEDICAID, SELFPAY ==
[2023-06-10 14:49] LABS: Methylphenidate Negative ng/mL (Cutoff: 10); Ritalinic Acid Negative ng/mL (Cutoff: 50)
== END 2023-06-04 17:44 | disposition home or self-care (01) ==
LOC: NCHCN 17:43
PROVIDERS: Visit Provider Family Medicine
DX: F90.8 Attention-deficit hyperactivity disorder, other type (principal); Z79.899 Other long term (current) drug therapy; Z51.81 Encounter for therapeutic drug level monitoring
CPT/HCPCS: 80360

== ENCOUNTER 2023-07-26 16:16 | Outpatient (REF) | payer MEDICAID, SELFPAY ==
[2023-07-31 05:00] LABS: Methylphenidate 58 ng/mL (Cutoff: 10); Ritalinic Acid 2590 ng/mL (Cutoff: 50)
== END 2023-07-26 16:17 | disposition home or self-care (01) ==
LOC: NCHCN 16:16
PROVIDERS: Visit Provider Family Medicine
DX: F11.20 Opioid dependence, uncomplicated (principal)
CPT/HCPCS: 80360

== ENCOUNTER 2023-08-06 17:21 | Outpatient (REF) | payer MEDICAID, SELFPAY ==
[2023-08-10 08:06] LABS: Methylphenidate 75 ng/mL (Cutoff: 10); Ritalinic Acid 1999 ng/mL (Cutoff: 50)
== END 2023-08-06 17:22 | disposition home or self-care (01) ==
LOC: NCHCN 17:21
PROVIDERS: Visit Provider Family Medicine
DX: F90.8 Attention-deficit hyperactivity disorder, other type (principal); Z79.899 Other long term (current) drug therapy; Z51.81 Encounter for therapeutic drug level monitoring
CPT/HCPCS: 80360

== ENCOUNTER 2023-09-09 14:59 | Outpatient (REF) | payer MEDICAID, SELFPAY ==
[2023-09-14 13:56] LABS: Methylphenidate Negative ng/mL (Cutoff: 10); Ritalinic Acid Negative ng/mL (Cutoff: 50)
== END 2023-09-09 15:00 | disposition home or self-care (01) ==
LOC: NCHCN 14:59
PROVIDERS: PCP Family Medicine; Visit Provider Family Medicine
DX: F90.8 Attention-deficit hyperactivity disorder, other type (principal); Z79.899 Other long term (current) drug therapy
CPT/HCPCS: 80360

== ENCOUNTER 2025-04-04 10:06 | Outpatient (CLI) | payer MEDICAID, SELFPAY ==
[2025-04-04 10:27] LABS: HCT 41.3 % (40.0-50.0); HGB 14.4 g/dL (13.5-17.5); MCH 28.6 pg (27.0-33.0); MCHC 34.9 % (32.0-36.0); MCV 82 fL (80-95); MPV 9.3 fL (8.0-11.0); Platelet Count 194 10^3/uL (130-400); RBC 5.03 10^6/uL (4.36-5.78); RDW 12.4 % (11.8-14.1); RDW-SD 37.0 fL; WBC 8.34 10^3/uL (4.4-10.8)
[2025-04-04 10:39] LABS: INR 1.1 (0.9-1.1); Prothrombin Time 10.6 sec (9.1-11.1)
[2025-04-04 10:50] LABS: ALT 37 U/L (16-63); AST 44 U/L (15-37); Albumin 4.5 g/dL (3.4-5.0); Alkaline Phosphatase 109 U/L (46-116); Anion Gap 11.2 mmol/L (3-11); BUN 23 mg/dL (7-18); Bilirubin, Direct 0.2 mg/dL (0.0-0.2); Bilirubin, Total 1.1 mg/dL (0.2-1.0); CO2 26.8 mmol/L (21.0-32.0); Calcium 9.2 mg/dL (8.5-10.1); Chloride 98 mmol/L (98-107); Estimated GFR 78.89 (mL/min/1.73m2); Glucose 98 mg/dL (74-106); Potassium 3.7 mmol/L (3.5-5.1); Sodium 136 mmol/L (136-145); Total Protein 7.9 g/dL (6.4-8.2)
== END 2025-04-04 10:07 | disposition home or self-care (01) ==
PROVIDERS: PCP Family Medicine; Visit Provider Family Medicine
DX: F11.21 Opioid dependence, in remission (principal); Z86.19 Personal history of other infectious and parasitic diseases
CPT/HCPCS: 36415; 80053; 80076; 85027; 86706; 85610

== ENCOUNTER 2025-04-06 16:08 | Outpatient (REF) | payer MEDICAID, SELFPAY ==
[2025-04-09 09:35] LABS: HBs Antibody, Quant 213.1 mIU/mL (See Note); Hepatitis B Surface Ab Positive (See Note)
[2025-04-09 15:26] LABS: Fentanyl Scr w/Rfx Confirm Negative ng/mL (<1)
== END 2025-04-06 16:09 | disposition home or self-care (01) ==
LOC: NCHCN 16:08
PROVIDERS: PCP Family Medicine; Visit Provider Family Medicine
DX: F11.21 Opioid dependence, in remission (principal); Z86.19 Personal history of other infectious and parasitic diseases
CPT/HCPCS: 80307; 86706